=== PATIENT | male | born 2000 | race Caucasian/White ===

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

== ENCOUNTER 2023-01-01 13:18 | Emergency (ER) | payer OTHER, SELFPAY ==
[2023-01-01] VITALS (15 sets, daily range): BP systolic 89–107; BP diastolic 51–59; PULSE 41–75; RESP 16; TEMP 36.8; O2SAT 97–100; BMI 20.3
--- NOTE | 2023-01-01 13:27 | DI.RAD.S_ITS ---
PROCEDURE: XR CHEST 1V INDICATIONS: chest pain TECHNIQUE: One view of the chest was acquired. COMPARISON: [facility], CR, XR CHEST 1V, 05/14/2021, 9:52. FINDINGS: Surgical changes and devices: None. Lungs and pleura: Lungs are clear. No pleural effusions or pneumothorax. Mediastinum: Mediastinal contours appear normal. Heart size is normal. Bones and chest wall: No suspicious bony lesions. Overlying soft tissues appear unremarkable. IMPRESSION: No acute cardiopulmonary abnormalities or focal airspace disease. Dictated by: Misha Finley M.D. on 01/01/2023 at 14:32 Approved by: Misha Finley M.D. on 01/01/2023 at 14:32
[2023-01-01 14:06] LABS: Add Manual Diff / Slide Review NO; Basophils Absolute Auto 0 /uL (0-100); Basophils Percent Auto 0.7 % (0-2); Eosinophils Absolute Auto 100 /uL (0-450); Eosinophils Percent Auto 3.1 % (2-4); Hemoglobin 14.2 g/dL (13.5-17.5); Lymphocytes Absolute Auto 1800 /uL (1100-4500); Lymphocytes Percent Auto 39.3 % (25-40); Mean Corpuscular HGB Conc 34.6 % (30-36); Mean Corpuscular Hemoglobin 26.8 PG (26-34); Mean Corpuscular Volume 77.4 fL (80-100); Monocytes Absolute Auto 400 /uL (0-900); Monocytes Percent Auto 9.2 % (3-14); Neutrophils Absolute Auto 2100 /uL (1500-7000); Neutrophils Percent Auto 47.7 % (50-75); Platelet Count 210 X10^3/uL (150-400); Red Blood Cell Count 5.29 X10^6/uL (4.5-5.9); Red Cell Distribution Width 13.1 % (11.6-14.8); White Blood Cell Count 4.5 X10^3/uL (4.5-11.0)
--- NOTE | 2023-01-01 14:11 | ED_ITS ---
HPI - Syncope General Chief Complaint: Dizziness Stated Complaint: sent by [facility] lighthead/faintness w/moving/dizzy Time Seen by Provider: 01/01/23 13:26 Source: patient and family Mode of arrival: Ambulatory History of Present Illness HPI narrative: 22-year-old male with history of migraine headaches presents for evaluation of intermittent dizziness, worse with positional changes. Patient states that he has had this intermittently for several months, but in the last 2-3 weeks it has gotten much worse. He spoke to 1 of his family members who is a pharmacist and she recommended he be evaluated. He initially went to the walk-in clinic, but was referred to the ER. Denies chest pain. Related Data Previous Rx's Medication Instructions Recorded ondansetron 4 mg disintegrating 4 mg PO Q8H PRN nausea and 06/24/19 tablet vomiting #30 tabs naratriptan 1 mg tablet See Rx Instructions .Route 09/16/21 .COMPLEX #30 tabs amitriptyline 10 mg tablet 10 mg PO BEDTIME #30 tabs 11/05/21 Allergies Allergy/AdvReac Type Severity Reaction Status Date / Time No Known Drug Allergies Allergy Verified 04/23/22 16:27 Review of Systems Review of Systems Narrative: CONSTITUTIONAL- Denies: fever, chills, fatigue HEENT- Denies: sore throat, nosebleed, vision changes RESPIRATORY- Denies: shortness of breath, cough, wheezing CARDIAC- Denies: chest pain, edema, orthopnea GI- Denies: abdominal pain, nausea, vomiting, constipation, diarrhea - Denies: frequency, dysuria, hematuria, flank pain MSK- Denies: extremity pain, extremity swelling, joint pain, joint swelling SKIN- Denies: rash, itching, burn, swelling NEUROLOGICAL-reports: Lightheaded Denies: headache, numbness, weakness, dizziness PSYCHIATRIC- Denies: anxiety, depression, suicidal ideation, homicidal ideation Patient History Medical History Atrial septal defect (04/14/16) Fracture of left distal radius LIOR (generalized anxiety disorder) Migraine with aura Family History Grandfather Asthma Grandmother Hx of cholecystectomy Social History (Reviewed 05/14/21 @ 10:14 by LEANDER Zhou Smoking Status: Never smoker Smoking Status: Never smoker alcohol intake frequency: other Substance Use Type: does not use Exam Initial Vital Signs Initial Vital Signs: Vital Signs Temperature 98.3 F 01/01/23 13:21 Pulse Rate 70 01/01/23 13:21 Respiratory Rate 16 01/01/23 13:21 Blood Pressure 107/59 L 01/01/23 13:21 Pulse Oximetry 100 01/01/23 13:21 Oxygen Delivery Method Room Air 01/01/23 13:21 Const: Awake, alert, no acute distress, nontoxic appearing Eyes: PERRL, EOMI, conjunctiva normal ENT: Atraumatic, dentition normal, mucous membranes moist Cardiac: regular rate, regular rhythm RESP: unlabored, clear bilaterally, no wheezing GI: Atraumatic, soft, nontender, nondistended, no rebound, no guarding MSK: Atraumatic, full range of motion, pulses equal Skin: Warm, Dry, intact, no rashes Neuro: AO x3, CN II-XII grossly intact, moves all extremities Psych: affect normal, mood normal, not suicidal, not homicidal Course Course Course Narrative: Well-appearing patient with intermittent dizziness, especially with positional changes. Patient states his dizziness is lightheaded and like he is about to pass out. Denies vertigo, chest pain, palpitations. States that he was hospitalized earlier this year at [facility] for stroke eval. He was diagnosed with complex migraine, and at that time he had a cardiology evaluation including an echocardiogram. He is not followed up with cardiology since that time. Laboratory work is reviewed, unremarkable. EKG is normal sinus rhythm without concerning findings. Chest x-ray reviewed, no concerning findings identified. Patient advised of all lab and imaging findings, recommended that patient's speak with his primary care physician about referrals to Cardiology for additional workup including possibility of Holter monitor. Possible orthostatic component as well, however orthostatic vitals here within normal limits. ED return precautions discussed at bedside. Patient expressed understanding of the plan and is in agreement at this time. All questions answered at the time of discharge. Orders Ordered: Discontinued Medications Aspirin (Aspirin 81 Mg Chew Tab) 324 mg PO NOW ONE Stop: 01/01/23 13:27 Last Admin: 01/01/23 14:03 Dose: Not Given Documented By: EZ Vital Signs Vital signs: Vital Signs - 8 hr 01/01/23 13:21 01/01/23 13:39 01/01/23 13:39 Temperature 98.3 F Pulse Rate 70 65 Respiratory Rate 16 Blood Pressure 107/59 L 105/56 L Pulse Oximetry 100 97 Oxygen Delivery Method Room Air MDM - Syncope Differential Diagnosis Differential diagnosis: Likely syncope due to orthostatic hypotension, vasovagal syncope and complete atrioventricular block Lab Data 01/01/23 13:52 01/01/23 13:52 Labs: Lab Results 01/01/23 Range/Units 13:52 WBC 4.5 (4.5-11.0) X10^3/uL RBC 5.29 (4.5-5.9) X10^6/uL Hgb 14.2 (13.5-17.5) g/dL Hct 41.0 (41-53) % MCV 77.4 L (80-100) fL MCH 26.8 (26-34) PG MCHC 34.6 (30-36) % RDW 13.1 (11.6-14.8) % Plt Count 210 (150-400) X10^3/uL Neut % (Auto) 47.7 L (50-75) % Lymph % (Auto) 39.3 (25-40) % [place] % (Auto) 9.2 (3-14) % Eos % (Auto) 3.1 (2-4) % Baso % (Auto) 0.7 (0-2) % Neut # (Auto) 2100 (3556-4506) /uL Lymph # (Auto) 1800 (6002-0075) /uL [place] # (Auto) 400 (0-900) /uL Eos # (Auto) 100 (0-450) /uL Baso # (Auto) 0 (0-100) /uL PT 17.3 H (10.1-12.7) SECONDS INR 1.5 H (0.9-1.3) APTT 34 (26-36) SECONDS Sodium 138 (137-145) mmol/L Potassium 3.7 (3.4-5.1) mmol/L Chloride 104 (98-107) mmol/L Carbon Dioxide 25 (22-32) mmol/L BUN 15 (9-20) mg/dL Creatinine 0.63 L (0.66-1.25) mg/dL Estimated GFR > 60 (>60) mL/min BUN/Creatinine Ratio 23.8 H (6-22) Glucose 97 (70-100) mg/dL Calcium 9.7 (8.4-10.2) mg/dL Magnesium 2.0 (1.6-2.3) mg/dL Total Bilirubin 0.7 (0.2-1.3) mg/dL AST 25 (17-59) IU/L ALT 17 (<50) IU/L Alkaline Phosphatase 78 (38-126) U/L Total Creatine Kinase 59 (55-170) U/L Troponin I < 0.012 (0.01-0.034) ng/mL Total Protein 7.0 (6.3-8.2) g/dL Albumin 4.5 (3.5-5.0) g/dL Globulin 2.5 (1.7-4.1) g/dL Albumin/Globulin Ratio 1.8 (1.0-2.8) Lipase 63 (23-300) U/L Discharge Plan Departure Patient Disposition: Home Clinical Impression: Dizziness Instructions: Orthostatic Hypotension, DI for Dizziness-Nonvertigo Activity Restrictions/Additional Instructions: MAKE SURE TO STAY HYDRATED. YOU CAN ALSO TRY TO INCREASE YOUR SALT INTAKE. THIS MAY HELP YOUR SYMPTOMS. FOLLOW UP WITH CARDIOLOGY, REFERRAL TO DR. GONZALEZ HAS BEEN PROVIDED. Prescriptions: No Action amitriptyline 10 mg tablet 10 mg PO BEDTIME Qty: 30 2RF ondansetron 4 mg tablet,disintegrating 4 mg PO Q8H PRN (Reason: nausea and vomiting) Qty: 30 0RF naratriptan 1 mg tablet See Rx Instructions .ROUTE .COMPLEX Qty: 30 2RF Dose Instruction: TAKE 1 TAB BY MOUTH AT HEADACHE ONSET CAN REPEAT IN 4 HOURS IF NEEDED MAX 5 TABS/24 HOURS Rx Instructions: TAKE 1 TAB BY MOUTH AT HEADACHE ONSET CAN REPEAT IN 4 HOURS IF NEEDED MAX 5 TABS/24 HOURS Referrals: Ximena Santiago MD [Primary Care Provider] - Kelby Gonzalez MD [Physician] - Stand Alone Forms: Patient Portal/API
[2023-01-01 14:18] LABS: INR 1.5 (0.9-1.3); Prothrombin Time 17.3 SECONDS (10.1-12.7)
[2023-01-01 14:21] LABS: Alanine Aminotransferase 17 IU/L (<50); Albumin 4.5 g/dL (3.5-5.0); Albumin Globulin Ratio 1.8 (1.0-2.8); Alkaline Phosphatase 78 U/L (38-126); Aspartate Aminotransferase 25 IU/L (17-59); BUN Creatinine Ratio 23.8 (6-22); Bilirubin Total 0.7 mg/dL (0.2-1.3); Blood Urea Nitrogen 15 mg/dL (9-20); Calcium 9.7 mg/dL (8.4-10.2); Carbon Dioxide 25 mmol/L (22-32); Chloride 104 mmol/L (98-107); Creatine Kinase 59 U/L (55-170); Estimated Glomerular Filt Rate > 60 mL/min (>60); Globulin 2.5 g/dL (1.7-4.1); Glucose 97 mg/dL (70-100); HEMOLYSIS 21 (0-50); Lipase 63 U/L (23-300); PTT Partial Thromboplastin Tim 34 SECONDS (26-36); Potassium 3.7 mmol/L (3.4-5.1); Sodium 138 mmol/L (137-145)
[2023-01-01 14:32] LABS: Troponin I < 0.012 ng/mL (0.01-0.034)
--- NOTE | 2023-01-01 15:05 | PC.NURSE ---
Physician at the bedside, orthostatic BPs entered, physician aware, patient up for d/c.
== END 2023-01-01 15:08 | disposition home or self-care (01) ==
PROVIDERS: Emergency Provider Emergency Medicine; Family Provider Family Medicine; PCP Family Medicine
DX: R42 Dizziness and giddiness (principal); R07.9 Chest pain, unspecified
CPT/HCPCS: 36415; 71045; 80053; 82550; 83690; 83735; 84484; 85025; 85610; 85730; 93005; 99283; 99284

== ENCOUNTER → 2023-09-21 10:23 | Outpatient (CLI) | payer OTHER, SELFPAY ==
--- NOTE | 2023-09-21 10:27 | DI.RAD.S_ITS ---
PROCEDURE: XR CERVICAL SPINE 2V OR 3V INDICATIONS: DYESAESTHESIA OF MIDDLE FINGER TECHNIQUE: 3 view(s) of the cervical spine were acquired. COMPARISON: [facility], CT, CT ANGIO HEAD AND NECK, 04/16/2022, 11:45. FINDINGS: Bones: No fractures or dislocations to the T1 level. The lateral masses of C1 appear intact on the odontoid view. No suspicious bony lesions. Straightening of the cervical spine lordosis. Soft tissues: No prevertebral soft tissue swelling. IMPRESSION: Straightening of the cervical spine lordosis. This could be due to positioning or muscle spasm. Dictated by: Sadi Quevedo M.D. on 09/21/2023 at 13:49 Approved by: Sadi Quevedo M.D. on 09/21/2023 at 13:51
== END ==
PROVIDERS: Family Provider Family Medicine; PCP Family Medicine; Referring Provider Family Medicine; Visit Provider Family Medicine
DX: R20.2 Paresthesia of skin (principal)
CPT/HCPCS: 72040